=== PATIENT | female | born 1975 | race Caucasian/White ===

== ENCOUNTER 2021-04-06 05:36 | Outpatient (CLI) | payer BC, OTHER ==
[~2021-04-06] VITALS: Ht 170 cm; Wt 89.0 kg
[2021-04-06] MEDS ORDERED: L.AC1CAP6 PO (17:15)
[2021-04-06] MEDS ORDERED: LEVO112C4 PO (17:15)
[2021-04-06] MEDS ORDERED: MULT-1136 PO (17:15)
[2021-04-06] MEDS ORDERED: FOLI0.4T6 PO (17:15)
[2021-04-06] MEDS ORDERED: NF-VITD400 PO (17:15)
== END 2021-04-06 17:25 | disposition home or self-care (01) ==
LOC: PREOP 05:36
PROVIDERS: ATTEND Obstetrics & Gynecology
DX: Z01.818 Encounter for other preprocedural examination (principal)

== ENCOUNTER 2021-04-12 05:55 | Day surgery (SDC) | payer BC, OTHER ==
[~2021-04-12] VITALS: Ht 170 cm; Wt 89.0 kg
[2021-04-12] VITALS (10 sets, daily range): BP systolic 106–129; BP diastolic 55–90
[~2021-04-12 05:55] MED LIST: FOLI0.4T6 PO; L.AC1CAP6 PO; LEVO112C4 PO; MULT-1136 PO; NF-VITD400 PO
[2021-04-12] MEDS ORDERED: ceFAZolin 2 GM IV Premixed 50 ML IV ONE (06:30)
[2021-04-12 06:32] LABS: BASOPHILS % (AUTO) 0 % (0-10); EOSINOPHILS # (AUTO) 0.1 10^3/uL (0.0-0.3); EOSINOPHILS % (AUTO) 1 % (0-10); HEMATOCRIT 43 % (35-52); HEMOGLOBIN 14.3 g/dL (11.5-16.0); LYMPHOCYTES # (AUTO) 1.6 10^3/uL (1.0-4.0); LYMPHOCYTES % (AUTO) 25 % (12-44); MEAN CORPUSCULAR HEMOGLOBIN 32 pg (25-34); MEAN CORPUSCULAR HGB CONC 33 g/dL (32-36); MEAN CORPUSCULAR VOLUME 95 fL (80-99); MEAN PLATELET VOLUME 9.2 fL (9.0-12.2); MONOCYTES # (AUTO) 0.6 10^3/uL (0.0-1.0); MONOCYTES % (AUTO) 10 % (0-12); NEUTROPHILS % (AUTO) 64 % (42-75); PLATELET COUNT 307 10^3/uL (130-400); WHITE BLOOD COUNT 6.2 10^3/uL (4.3-11.0)
[2021-04-12] MEDS ORDERED: fentaNYL INJ 100 MCG/2 ML AMP ONE ×2 (06:56→07:01)
[2021-04-12] MEDS ORDERED: ONDANSETRON 4 MG/2 ML (SDV) Z0FRAN ONE ×2 (06:57→07:01)
[2021-04-12] MEDS ORDERED: ONDANSETRON 4 MG/2 ML (SDV) Z0FRAN IVP NR (07:00)
[2021-04-12] MEDS ORDERED: fentaNYL INJ 100 MCG/2 ML AMP IVP NR (07:00)
[2021-04-12] MEDS ORDERED: proPOfol 200 MG/20 ML (DIPRIVAN) VIAL IV ONE (07:01)
[2021-04-12] MEDS ORDERED: NEOSTIGMINE 3 MG/3 ML VIAL ONE (07:01)
[2021-04-12] MEDS ORDERED: GLYCOPYRROLATE 0.2 MG/ML (ROBINUL) 2 ML VIAL ONE (07:01)
[2021-04-12] MEDS ORDERED: LIDOCAINE PF 2% 5 ML (XYLOCAINE) VIAL ONE (07:01)
[2021-04-12] MEDS ORDERED: MIDAZOLAM 2 MG/2 ML (VERSED) VIAL ONE (07:02)
[2021-04-12] MEDS ORDERED: ROCURONIUM 50 MG/5 ML (ZEMURON) VIAL IV ONE (07:02)
[2021-04-12] MEDS: LACTATED RINGERS 1,000 ML IV PRN ×2 (07:03→07:17)
[2021-04-12] MEDS ORDERED: LIDOCAINE/EPI 1%-1:200,000 (XYLOCAINE) 30 ML VIAL ONE (07:06)
[2021-04-12 07:07] LABS: BILIRUBIN,URINE NEGATIVE (NEGATIVE); CLARITY,URINE SL CLOUDY; COLOR,URINE YELLOW; GLUCOSE, URINE (UA) NEGATIVE (NEGATIVE); KETONES,URINE NEGATIVE (NEGATIVE); LEUKOCYTE ESTERASE ,URINE NEGATIVE (NEGATIVE); NITRITE,URINE NEGATIVE (NEGATIVE); PH,URINE 5.5 (5-9); PROTEIN,URINE NEGATIVE (NEGATIVE)
[2021-04-12 07:24] LABS: AMORPHOUS SEDIMENT,UR LARGE AMOR URATES /LPF; BACTERIA,URINE MODERATE /HPF
--- NOTE | 2021-04-12 07:36 | Progress Note-Pre Operative ---
Pre-Operative Progress Note H&P Reviewed The H&P was reviewed, patient examined and no changes noted. Date Seen by Provider: Apr 12, 2021 Time Seen by Provider: 07:30 Date H&P Reviewed: Apr 12, 2021 Time H&P Reviewed: 07:30 Pre-Operative Diagnosis: abnormal uterine bleeding, uterine fibroids, thick endometrium, cerv YOLIE Freeman DO Apr 12, 2021 07:36
[2021-04-12] MEDS ORDERED: SUCCINYLCHOLINE INJ 100 MG/5 ML SYR/VIAL ONE (07:50)
[2021-04-12] MEDS ORDERED: SEVOFLURANE (ULTANE) 15 ML INHAL SOLN ONE (09:23)
--- NOTE | 2021-04-12 09:42 | Operative Report ---
Operative Report Date of Procedure/Surgery Apr 12, 2021 Surgeon (s) YOLIE HAN DO Diplomatic Interpreter/Translator (s): NA Post-Operative Diagnosis uterine fibroids abnormal uterine bleeding thickened endometrium left ovarian cyst (functional) omental adhesions uterovesicular adhesions, thick and extensive Procedure Performed RaTH, bilateral salpingectomy cervical dilation and curttage with frozen (benign tissue) extensive lysis of adhesion Description of Procedure Anesthesia Type: General Estimated blood loss (mL): minimal Specimen(s) collected/removed uterus, bilateral tubes and ovaries Description of the Procedure After informed consent was obtained, patient was taken into the operating room where general anesthetic was found to be adequate. She was prepped and draped in the usual sterile fashion in the dorsal lithotomy position. A Bae catheter was placed. A speculum was placed in the vagina. The cervix was visualized and the anterior lip was grasped with a sharp toothed tenaculum. The cervix was stenotic and I could not introduce a dilator. I made an incision in the os with a 15 blade and this allowed the uterus to be sounded and depth was approximately centimeters. I then gently dilated the cervix to allow the insertion of the uterine manipulator. I placed the Lisa device (8 cm) and a 3.0 cm collar was advanced over the cervix. I inserted the Lisa without difficulty, inflating the balloon and securing it around the fornix of the cervix. The collar was then secured with sutures at 12 o'clock. Attention was then turned to the patient's abdomen. The skin was injected with 0.25% Marcaine. A supraumbilical incision was made about 8 mm in length. A Veress needle was inserted and I confirmed intraabdominal placement with a drop in pressure and the saline drop test. The opening pressure was 6 mmHg. I then insufflated the abdomen to a maximum of 15 mmHg with warmed CO2 gas. I placed an additional 8 mm trocar in the left abdomen lateral to the umbilicus approximately 15 cm lateral. Upon placing the camera, i noted that there were omental adhesions inferior to the umbilicus that were obscuring the visualization of the pelvis. Due to this, I opted to placed an additional trocar in the left upper quadrant. The patient had previously had a Navdeep fundoplication, so, prior to insertion of the trocar, I visualized the upper left abdomen and there were no adhesions noted. I then made a skin incision in the left upper quadrant and placed a 12 mm trocar. i then moved the camera to this location and was able to visualize the omental adhesions. The second and third robotic port was placed about 12 cm lateral to the right and left of the umbilical placement. 0.25% Marcaine was injected prior to placement of all trocars. These were 8 mm trocars. These were placed under direct visualization of the laparoscope. When all placements were confirmed, the patient was placed in steep Trendelenburg allowing adequate visualization. I then utilized laparoscopic jm to lyse the omental adhesions from the mid lower abdominal wall. Once this was completed, the robot was brought in for docking. The docking was accomplished without difficulty. I then took over the command of the robot utilizing the synchroseal and monopolar jm. There were adhesions over the left ovary, tube and cornu so these had to be taken down to begin dissection. The right round ligament could not be easily viewed due to the adhesions. I took down these adhesions and there was good hemostasis. Once I was able to visualize the round ligaments bilaterally and grasped them and cauterized with bipolar cautery and then cut with my jm. At this point, I then did bilateral partial salpingectomy (she has had previous tubal ligation at the time of her section). I incised the mesosalpinx with the jm. The tubes were placed in the culdesac to be removed with the uterus. I then moved my dissection to the posterior leaves of the broad ligament. I dissected the posterior leaves of the broad ligament off the uterine arteries skeletonizing them bilaterally. I then took a second clamp with the synchroseal and with the jm, transected the vessels away from the lateral aspect to the cervical stroma. There were very extensive vesicouterine and parauterine adhesions from the previous sections. These took approximately 45 minutes to take down. the uterus was essentially attached to the abdominal wall at one portion. I dissected the anterior peritoneum off the lower uterine segment. I continually pushed the bladder back and I took excessively great care and I was eventually able to dissect the vesicouterine peritoneum off the lower uterine segment and the adhesions of the uterus to the pelvic sidewall bilaterally. I then dissected in a V fashion towards the midline between the uterosacral ligaments. This allowed me to skeletonize the uterine vessels bilaterally. The balloon on the LISA was insufflated. This allowed me to see the LISA circumferentially. I then performed a colpotomy anteriorly and then amputate with cervix away from the vaginal fornix. I then continued the colpotomy circumferentially. Once this was performed, the assistant manager bilingual attempted to remove the uterus through the vagina. She then left the a sponge in the vagina to maintain the pneumoperitoneum. . I then began closure of the vaginal cuff. I closed the apices of the vaginal cuff with 2-0 Vicryl V lock sutures with a colposuspension through the uterosacral ligaments. This suspended the apices of the vaginal cuff. I extended this to the midline from both sides and overlapped the V lock sutures in the midline. Excellent closure is noted and hemostasis is achieved. All the needles were removed from the patient's abdomen. Now, the robotic instruments were removed and the robot was docked back to laparoscopy. The pelvis was irrigated. There was no active bleeding noted. surgiflow was placed over the vaginal cuff and the area of dissection due to risk of bleeding. Bilateral ureters were seen the entire time during the surgery and were peristalsing. There was no excessive bleeding noted. The trocars were removed under direct visualization. The laparoscopic sites were visualized and found to be hemostatic. the left upper quadrant deep fascial incision was closed with a figure of eight stitch of 0 vicryl. The skin incisions were closed with 4-0 Monocryl in a subcuticular fashion and then with Dermabond. Op sites were placed over the incision sites. The instruments were removed from the vagina and I noted there were no abrasions. Sponge, lap, needle and instrument counts correct times two. Patient was awakened and taken to recovery in a stable condition Findings of the Procedure enlarged boggy uterus with fibroid cervix stenotic difficult to dilate cervix omental adhesions at/inferior to umbilicus uterovesicular adhesions, dense bowel adhesions to left side of uterus left ovarian cyst (< 2 cm, simple) evidence of tubal separation Allergies and Home Medications Allergies Coded Allergies: No Known Drug Allergies (Unverified , 04/06/21) Patient Home Medication List Home Medication List Reviewed: Yes Acetaminophen (Acetaminophen) 500 Mg Tablet, 1,000 MG PO Q8HR Prescribed by: YOLIE HAN on 04/12/21 0950 Folic Acid (Folic Acid) Unknown Strength Tablet, Unknown Dose PO DAILY, (Reported) Entered as Reported by: TED MCCARTHY on 04/06/211714 Last Action: Last Taken Edited Ibuprofen (Ibu) 600 Mg Tablet, 600 MG PO Q6HR Prescribed by: YOLIE HAN on 04/12/21 0950 L.acidoph & Paracasei,B.lactis (Probiotic) 1 Each Capsule, 1 EACH PO DAILY, (Reported) Entered as Reported by: TED MCCARTHY on 04/06/211714 Last Action: Last Taken Edited Levothyroxine Sodium (Levothyroxine) 112 Mcg Capsule, 112 MCG PO DAILY, (Reported) Entered as Reported by: TED MCCARTHY on 04/06/211714 Last Action: Last Taken Edited Multivitamin (Multivitamin) 1 Each Tablet, 1 EACH PO DAILY, (Reported) Entered as Reported by: TED MCCARTHY on 04/06/211714 Last Action: Last Taken Edited Ondansetron (Ondansetron Odt) 4 Mg Tab.rapdis, 4 MG PO Q6H PRN for NAUSEA/VOMITING Prescribed by: YOLIE HAN on 04/12/21 0950 Simethicone (Mi-Acid) 80 Mg Tab.chew, 80 MG PO Q4HR PRN for gas Prescribed by: YOLIE HAN on 04/12/21 0950 Vitamin D (Vitamin D3) Unknown Strength Tablet, Unknown Dose PO DAILY, (Reported) Entered as Reported by: TED MCCARTHY on 04/06/211714 Last Action: Last Taken Edited YOLIE HAN DO Apr 12, 2021 09:42
[2021-04-12] MEDS ORDERED: SIMETHICONE 80 MG (MYLICON) CHEW PO PRN (09:45)
[2021-04-12] MEDS ORDERED: CHLORASEPTIC LOZENGE MM PRN (09:45)
[2021-04-12] MEDS ORDERED: morphine INJ 4 MG/ML 1 ML (VIAL/SYRINGE) IV PRN (09:45)
[2021-04-12] MEDS ORDERED: ONDANSETRON 4 MG (ZOFRAN) ORAL DISSOLVE TAB PO PRN (09:45)
[2021-04-12] MEDS ORDERED: PROMETHAZINE INJ 25 MG/ML (PHENERGAN) AMP IVP PRN (09:45)
[2021-04-12] MEDS ORDERED: NALOXONE 0.4 MG/ML 1 ML (NARCAN) VIAL IV PRN (09:45)
--- NOTE | 2021-04-12 09:48 | Discharge Inst-Women's Service ---
Discharge Inst-Women's Serv Depart Medication/Instructions New, Converted or Re-Newed RX: Transmitted to Pharmacy Final Diagnosis uterine fibroids abnormal uterine bleeding thickened endometrium omental adhesions uterovesicular adhesions left functional ovarian cyst Problems Reviewed?: Yes Consults/Follow Up Additional Follow Up: Yes (1 week for incision check and 8 weeks for post op exam) Activity Activity: Activity as Tolerated Driving Instructions: No Driving for 1 Week NO SMOKING: NO SMOKING Nothing Inside Vagina: No Douching, No [place] (until cleared by physician ), No Tampons Diet Discharge Diet: No Restrictions Symptoms to Report to DrSole: Bleeding Excessive, Pain Increased, Fever Over 101 Degrees F, Vaginal Bleeding Increase, Cramps in Feet or Legs, Vaginal Discharge Foul For Any Problems or Questions: Contact Your Physician Skin/Wound Care Infection Signs and Symptoms: Increased Redness, Foul Odor of Wound, Increased Drainage, Skin Itchy or Has a Rash, Increased Swelling, Temperature Above 101 F Operative Area Clean and Dry: You May Remove Bandage (in 72 hours or if soiled/wet) Stitches/Sizerock/Dermabond: Dermabond Bathing Instructions: YOLIE Amaya DO Apr 12, 2021 09:48
[2021-04-12] MEDS ORDERED: OXC5T PO (09:50)
[2021-04-12] MEDS ORDERED: IBUP-844 PO (09:50)
[2021-04-12] MEDS ORDERED: ACET-93 PO (09:50)
[2021-04-12] MEDS ORDERED: ONDA4TAB11 PO (09:50)
[2021-04-12] MEDS ORDERED: SMT80CT PO (09:50)
[2021-04-12] MEDS: LACTATED RINGERS 1,000 ML IV SCH ×2 (10:05→12:01)
[2021-04-12] MEDS ORDERED: morphine INJ 10 MG/ML 1ML (SYR OR VIAL) ONE (10:13)
[2021-04-12] MEDS ORDERED: PROMETHAZINE INJ 25 MG/ML (PHENERGAN) AMP IVP ONE (10:15)
[2021-04-12] MEDS ORDERED: HYDROmorphone 2 MG/ML VIAL (DILAUDID) IV ONE (10:15)
[2021-04-12] MEDS ORDERED: ONDANSETRON 4 MG/2 ML (SDV) Z0FRAN IVP PRN (10:15)
[2021-04-12] MEDS ORDERED: morphine INJ 10 MG/ML 1ML (SYR OR VIAL) IVP ONE (10:15)
[2021-04-12] MEDS ORDERED: KETOROLAC 30 MG/ML VIAL ONE (11:53)
[2021-04-12] MEDS ORDERED: KETOROLAC 30 MG/ML VIAL IV SCH (12:00)
--- NOTE | 2021-04-12 13:12 | Anesthesia-General Post-Op ---
General Patient Condition Mental Status/LOC: Same as Preop Cardiovascular: Satisfactory Nausea/Vomiting: Absent Respiratory: Satisfactory Pain: Controlled Complications: Absent Post Op Complications Complications None Follow Up Care/Instructions Patient Instructions None needed. Anesthesia/Patient Condition Patient Condition Patient was doing well in PACU with no complaints, stable vital signs, no apparent adverse anesthesia problems. YULIET PÉREZ DO Apr 12, 2021 13:12
[2021-04-12] MEDS ORDERED: ACETAMINOPHEN 500 MG TAB (TYLENOL) PO SCH (14:00)
[2021-04-13] MEDS ORDERED: IBUPROFEN 600 MG (MOTRIN) TAB PO SCH (12:00)
== END 2021-04-12 16:00 | disposition home or self-care (01) ==
LOC: SDC 05:55 → WS 11:00 → SDC 16:00
PROVIDERS: ATTEND Obstetrics & Gynecology
DX: D25.9 Leiomyoma of uterus, unspecified (principal); N73.6 Female pelvic peritoneal adhesions (postinfective); N83.292 Other ovarian cyst, left side; K21.9 Gastro-esophageal reflux disease without esophagitis; E07.9 Disorder of thyroid, unspecified; M19.90 Unspecified osteoarthritis, unspecified site; D64.9 Anemia, unspecified; N88.2 Stricture and stenosis of cervix uteri; Z79.899 Other long term (current) drug therapy; Z79.890 Hormone replacement therapy; Z98.890 Other specified postprocedural states; Z79.1 Long term (current) use of non-steroidal anti-inflammatories (NSAID)
CPT/HCPCS: 36415; 81000; 84703; 85025; 86850; 86900; 86901; 87077; 87081; 87088

== ENCOUNTER → 2022-09-21 | Outpatient (CLI) | payer OTHER ==
[~2022-09-21] MED LIST changes: +ACET-93 PO; +IBUP-844 PO; +ONDA4TAB11 PO; +OXC5T PO; +SMT80CT PO
== END ==
LOC: CARD 12:28
PROVIDERS: ATTEND Nurse Practitioner Family
DX: R60.9 Edema, unspecified (principal); R00.1 Bradycardia, unspecified
CPT/HCPCS: 93306

== ENCOUNTER 2023-01-08 05:43 | Outpatient (CLI) | payer OTHER ==
[~2023-01-08] VITALS: Ht 170.8 cm; Wt 90.0 kg
[2023-01-08] MEDS ORDERED: MELO5CAP3 PO (08:47)
[2023-01-08] MEDS ORDERED: HYDR25TA4 PO (08:47)
[2023-01-08] MEDS ORDERED: ASPI-999 PO (08:47)
== END 2023-01-08 15:24 | disposition home or self-care (01) ==
LOC: PREOP 05:43
PROVIDERS: ATTEND Obstetrics & Gynecology
DX: Z01.818 Encounter for other preprocedural examination (principal)

== ENCOUNTER 2023-01-15 05:57 | Day surgery (SDC) | payer OTHER ==
[~2023-01-15] VITALS: Ht 170.8 cm; Wt 90.0 kg
[2023-01-15] VITALS (14 sets, daily range): BP systolic 98–118; BP diastolic 53–73
[~2023-01-15 05:57] MED LIST changes: +ASPI-999 PO; +HYDR25TA4 PO; +MELO5CAP3 PO
[2023-01-15] MEDS: LACTATED RINGERS 1,000 ML 1,000 ML IV PRN ×2 (06:35→07:48)
[2023-01-15] MEDS ORDERED: 0.9% SODIUM CHLORIDE PF INJ 20 ML VIAL ONE (06:50)
[2023-01-15] MEDS ORDERED: ESTROGENS, Conjugated VAGINAL CREAM 30 GM ONE (06:51)
[2023-01-15] MEDS ORDERED: LIDOCAINE 2% w/EPI 1:100,000 20 ML VIAL ONE (06:51)
[2023-01-15] MEDS ORDERED: MIDAZOLAM INJ 2 MG/2 ML VIAL ONE (06:58)
[2023-01-15] MEDS ORDERED: LIDOCAINE PF 2% 5 ML VIAL ONE (06:58)
[2023-01-15] MEDS ORDERED: ROCURONIUM 50 MG/5 ML VIAL IV ONE (06:58)
[2023-01-15] MEDS ORDERED: fentaNYL INJECTION 100 MCG/2 ML VIAL ONE (06:58)
[2023-01-15] MEDS ORDERED: proPOfol INJECTION 200 MG/20 ML VIAL IV ONE (06:58)
[2023-01-15] MEDS ORDERED: dexAMETHasone INJ 10 MG/ML 1 ML VIAL ONE (07:00)
[2023-01-15] MEDS ORDERED: ONDANSETRON INJECTION 4 MG/2 ML (SDV) ONE (07:00)
[2023-01-15] MEDS ORDERED: KETOROLAC INJ 30 MG/ML VIAL ONE (07:00)
--- NOTE | 2023-01-15 07:09 | Progress Note-Pre Operative ---
Pre-Operative Progress Note Date of Available H&P: Jan 15, 2023 Date H&P Reviewed: Jan 15, 2023 Time H&P Reviewed: 07:08 History & Physical: H&P Reviewed, No changes noted Pre-Operative Diagnosis: Midline cystocele Plan: Ant. repair poss. post repair JOSE JAMES DO Jan 15, 2023 07:09
[2023-01-15] MEDS: ceFAZolin INJECTION 2,000 MG in NS (IVPB) 50 ML 50 ML IV ONE ×2 (07:19→07:41)
[2023-01-15] MEDS ORDERED: ESTROGENS, Conjugated VAGINAL CREAM 30 GM VG ONE (07:46)
[2023-01-15] MEDS ORDERED: 0.9% SODIUM CHLORIDE PF INJ 20 ML VIAL IJ ONE (07:46)
[2023-01-15] MEDS ORDERED: LIDOCAINE 2% w/EPI 1:100,000 20 ML VIAL INJ ONE (07:48)
[2023-01-15] MEDS ORDERED: NEOSTIGMINE 1 MG/1ML 10 ML VIAL ONE (08:27)
[2023-01-15] MEDS ORDERED: GLYCOPYRROLATE INJ 0.2 MG/ML 2 ML VIAL ONE (08:27)
[2023-01-15] MEDS ORDERED: SEVOFLURANE (ULTANE) 15 ML INHAL SOLN ONE (08:33)
[2023-01-15] MEDS ORDERED: HYDROmorphone INJECTION 2 MG/ML VIAL IV ONE (08:45)
[2023-01-15] MEDS ORDERED: ONDANSETRON INJECTION 4 MG/2 ML (SDV) IVP PRN (08:45)
[2023-01-15] MEDS ORDERED: HYDROcodone/ACETAMINOPHEN 5 MG/325 MG TABLET PO PRN (08:45)
[2023-01-15] MEDS ORDERED: ENOXAPARIN 40 MG/0.4 ML SYRINGE SC SCH (08:45)
[2023-01-15] MEDS ORDERED: NALOXONE 0.4 MG/ML 1 ML VIAL IV PRN (08:45)
[2023-01-15] MEDS ORDERED: morphine INJ 4 MG/ML 1 ML (VIAL/SYRINGE) IV PRN (08:45)
[2023-01-15] MEDS ORDERED: METOCLOPRAMIDE INJ 10 MG/2 ML IV PRN (08:45)
[2023-01-15] MEDS ORDERED: morphine INJ 10 MG/ML 1ML (SYR OR VIAL) IVP ONE (08:45)
[2023-01-15] MEDS ORDERED: BENZOCAINE/MENTHOL (DERMOPLAST) 56 ML CAN TP PRN (08:45)
--- NOTE | 2023-01-15 08:45 | History & Physical-OB/GYN ---
History of Present Illness History of Present Illness Reason for visit/HPI This 47-year-old G3, P2 presents for an anterior and posterior colporrhaphy. Patient has a grade 2 midline cystocele and a grade 1 rectocele. We discussed risk benefits and alternatives including the risks of infection, bleeding, injury to bowel bladder ureters, nerve and limb damage, and anesthesia risks, VTE and the benefits of checking up the vagina so that she would have less pressure. Patient verbalized understanding and had all of her questions answered to her satisfaction. Date of Admission 01/15/2023 Date Seen by a Provider: Jan 15, 2023 Time Seen by a Provider: 07:00 I consulted on this patient on 01/15/23 08:45 Attending Physician Julia Cordero Aprn Admitting Physician Admitting Physician: Attending Physician: Lisa Tariq DO Consult Allergies and Home Medications Allergies Coded Allergies: No Known Drug Allergies (Unverified , 04/06/21) Patient Home Medication List Home Medication List Reviewed: Yes Aspirin (Aspirin) 81 Mg Tab.chew, 81 MG PO, (Reported) Entered as Reported by: Camila Verma on 01/08/23846 Last Action: Reviewed Folic Acid (Folic Acid) Unknown Strength Tablet, Unknown Dose PO DAILY, (Reported) Entered as Reported by: TED MCCARTHY on 04/06/211714 Last Action: Reviewed Hydrochlorothiazide (Hydrochlorothiazide) 25 Mg Tablet, 25 MG PO, (Reported) Entered as Reported by: Camila Verma on 01/08/23846 Last Action: Reviewed Levothyroxine Sodium (Levothyroxine) 112 Mcg Capsule, 112 MCG PO DAILY, (Reported) Entered as Reported by: TED MCCARTHY on 04/06/211714 Last Action: Reviewed Meloxicam, Submicronized (Meloxicam) 5 Mg Capsule, 5 MG PO, (Reported) Entered as Reported by: Camila Verma on 01/08/23846 Last Action: Reviewed Multivitamin (Multivitamin) 1 Each Tablet, 1 EACH PO DAILY, (Reported) Entered as Reported by: TED MCCARTHY on 04/06/211714 Last Action: Reviewed Vitamin D (Vitamin D3) Unknown Strength Tablet, Unknown Dose PO DAILY, (Reported) Entered as Reported by: TED MCCARTHY on 04/06/211714 Last Action: Reviewed Discontinued Medications Acetaminophen (Acetaminophen) 500 Mg Tablet, 1,000 MG PO Q8HR Discontinued Reason: No Longer Taking Prescribed by: YOLIE HAN on 04/12/21 0950 Ibuprofen (Ibu) 600 Mg Tablet, 600 MG PO Q6HR Discontinued Reason: No Longer Taking Prescribed by: YOLIE HAN on 04/12/21 0950 L.acidoph & Paracasegary,B.lactis (Probiotic) 1 Each Capsule, 1 EACH PO DAILY, (Reported) Discontinued Reason: No Longer Taking Entered as Reported by: TED MCCARTHY on 04/06/21 1715 Ondansetron (Ondansetron Odt) 4 Mg Tab.rapdis, 4 MG PO Q6H PRN for NAUSEA/VOMITING Discontinued Reason: No Longer Taking Prescribed by: YOLIE HAN on 04/12/21 0950 Oxycodone Hcl (Oxyir Tablet) 5 Mg Tab, 5 MG PO Q4HR PRN for PAIN-SEE DOSE INSTRUCTIONS Discontinued Reason: No Longer Taking Prescribed by: CLIFTON MCCANN on 04/12/21 1543 Simethicone (Mi-Acid) 80 Mg Tab.chew, 80 MG PO Q4HR PRN for gas Discontinued Reason: No Longer Taking Prescribed by: YOLIE HAN on 04/12/21 0950 Past Btrkktv-Nhxize-Pymoit Hx Patient Social History Marrital Status: Number of Children: 3 Number of living children: 2 Employed/Student: employed Smoking Status: Never a Smoker 2nd Hand Smoke Exposure: No Recent Hopitalizations: No Alcohol Use?: No Immunizations Up To Date Date of Influenza Vaccine: Dec 07, 2020 Seasonal Allergies Seasonal Allergies: Yes Surgeries Yes (RT ARM SURGERY, GALLBLADDER, C/S, D&C, Hiatal hernia repair) Section, Gallbladder, Hysterectomy, Orthopedic Respiratory No Cardiovascular No Neurological No Reproductive System Female Reproductive Disorders: Menstrual Problems DATABASE SUPPORT History: Hysterectomy Genitourinary No Gastrointestinal Yes (Hiatal Hernia Repair 2019) Gastroesophageal Reflux Musculoskeletal Yes Arthritis Endocrine History of Endocrine Disorders: Yes Endocrine Disorders: Hypothyroidsim HEENT History of HEENT Disorders: No Cancer No Psychosocial History of Psychiatric Problem: No Integumentary History of Skin or Integumenta: No Blood Transfusions History of Blood Disorders: Yes (HX OF ANEMIA) Review of Systems Constitutional: see HPI EENTM: see HPI Respiratory: see HPI Cardiovascular: see HPI Gastrointestinal: see HPI Genitourinary: see HPI Musculoskeletal: see HPI Skin: see HPI Psychiatric/Neurological: No Symptoms Reported, See HPI Physical Exam Physical Exam Vital Signs Vital Signs Date Time Temp Pulse Resp B/P (MAP) Pulse Ox O2 Delivery O2 Flow Rate FiO2 01/15/23 06:00 36.9 56 18 118/73 (88) 99 Capillary Refill : General Appearance: No Apparent Distress, WD/WN Respiratory: Chest Non Tender, Lungs Clear, Normal Breath Sounds Cardiovascular: Regular Rate, Rhythm, No Edema Abdominal: normal bowel sounds, non tender, soft Gynecology/General: No urethral discharge, No lesions Vagina: Cystocele, Prolapse, Rectocele Uterus: Absent Pelvic Exam: normal external exam Extremity: Normal Inspection Assessment/Plan Admission Diagnosis Cystocele and rectocele Plan for anterior and posterior colporrhaphy Admission Status: Observation LISA TARIQ DO Jan 15, 2023 08:45
--- NOTE | 2023-01-15 08:46 | OB/GYN Operative Report ---
Operative Report Date of Procedure:Jan 15, 2023 Preoperative Diagnosis:Grade 2 midline cystocele grade 1 rectocele Postoperative Diagnosis: Same Name of the Procedure: Anterior and posterior colporrhaphy Surgeon: Lisa James Unix System Administrator(s): Royer TRAN Anesthesia: General ETA Indications for Procedure: This 47-year-old presents with a grade 2 cystocele and grade 1 rectocele that has been causing her difficulty with urination and feelings of pressure. Patient had tried nonsurgical options they were not successful. Patient verbalized understanding of the risk benefits and alternatives, signed consents and is ready to proceed. Findings of the Procedure: Midline grade 2 cystocele and grade 1 rectocele Complications: None Disposition: Counts correct x2 patient taken to recovery room in stable condition. Description of the Procedure: Informed consent was obtained and signed and patient was taken to OR [place]. 3 placed under general tracheal anesthesia laced in the dorsolithotomy position prepped and draped usual sterile fashion. A timeout was performed. A pelvic exam under anesthesia revealed a grade 2 midline cystocele and a grade 1 rectocele. Because the patient had had issues with both she was prepared to have both repaired. Starting with the cystocele 2 Allis clamps were grasped about 2 cm and a half away from the urethral meatus and then near the cuff. The area was injected with 1% lidocaine with epinephrine. The vagina vaginal mucosa was then hydrodissected off of the bladder using 1% lidocaine with epi. Once the area was hydrodissected and midline incision was made and the vaginal mucosa full-thickness was reflected off of the bladder until we were able to dissect to just behind the pubic symphysis bilaterally. Using 0 Vicryl on a UR 6 needle, I placed a stitch deep just behind the pubic spine symphysis to the left side and then across to the right side to tighten up the area once this was done and the cystocele was pushed backward I then did pursestring stitches in a single layer to bring all together. The vaginal mucosa was then trimmed and then the vaginal mucosa was reapproximated using 3-0 Rapide in a running fashion. Next attention was paid to the perineum and the rectocele was then noted to os clamps were grasped at 5 and 7:00, injected with 1% lidocaine with epi to create a hydrodisection. and a triangle perineoplasty incision was made and then the vaginal mucosa was reflected off of the rectum to midline and midway to the vaginal cuff. The bowel was reflected off of the vaginal mucosa and pursestring sutures were placed in 2 layers to retract the rectocele. The vaginal mucosa was then trimmed and the vaginal mucosa was reapproximated using 0 Vicryl and the perineoplasty was also reapproximated. Was noted that the levator ani on the right was tight and once patient heals we will plan on physical therapy. The estimated blood loss was less than 50 cc fluids were 1700 cc urine output was 50 cc all my counts were correct and the patient was taken to recovery room in stable condition. I did have Dr. Juan TRAN assist me with this procedure for extra retraction and his additional expertise LISA JAMES DO Jan 15, 2023 08:46
[2023-01-15] MEDS ORDERED: morphine INJ 10 MG/ML 1ML (SYR OR VIAL) ONE (09:03)
--- NOTE | 2023-01-15 09:40 | Anesthesia-General Post-Op ---
General Patient Condition Mental Status/LOC: Same as Preop Cardiovascular: Satisfactory Nausea/Vomiting: Absent Respiratory: Satisfactory Pain: Controlled Complications: Absent Post Op Complications Complications None Follow Up Care/Instructions Patient Instructions None needed. Anesthesia/Patient Condition Patient Condition Patient is doing well, no complaints, stable vital signs, no apparent adverse anesthesia problems. No complications reported per nursing. NAILA THAPA CRNA Jan 15, 2023 09:40
[2023-01-15] MEDS ORDERED: D5 LR 1,000 ML IV SOLN 1,000 ML IV ONE (10:24)
[2023-01-15] MEDS ORDERED: IBUP-1780 PO (10:26)
[2023-01-15] MEDS ORDERED: DOCU100C37 PO (10:26)
[2023-01-15] MEDS ORDERED: ACHD5005 PO (10:26)
[2023-01-15] MEDS: D5 LR 1,000 ML IV SOLN 1,000 ML IV SCH ×2 (10:42→17:37)
[2023-01-15] MEDS: KETOROLAC INJ 30 MG/ML VIAL IV SCH ×2 (17:37→23:19)
[2023-01-16] MEDS: KETOROLAC INJ 30 MG/ML VIAL IV SCH (05:26)
[2023-01-16 05:30] VITALS: BP 111/60
[2023-01-16 05:39] LABS: BASOPHILS % (AUTO) 0 % (0-10); EOSINOPHILS % (AUTO) 0 % (0-10); HEMATOCRIT 35 % (35-52); LYMPHOCYTES # (AUTO) 1.8 10^3/uL (1.0-4.0); LYMPHOCYTES % (AUTO) 11 % (12-44); MEAN CORPUSCULAR HEMOGLOBIN 31 pg (25-34); MEAN CORPUSCULAR HGB CONC 35 g/dL (32-36); MEAN CORPUSCULAR VOLUME 90 fL (80-99); MONOCYTES # (AUTO) 1.3 10^3/uL (0.0-1.0); MONOCYTES % (AUTO) 8 % (0-12); NEUTROPHILS # (AUTO) 12.8 10^3/uL (1.8-7.8); NEUTROPHILS % (AUTO) 80 % (42-75); PLATELET COUNT 276 10^3/uL (130-400); WHITE BLOOD COUNT 15.9 10^3/uL (4.3-11.0)
[2023-01-16 06:07] LABS: BAND NEUTROPHILS 3 %; LYMPHOCYTES % (MANUAL) 5 %; MONOCYTES % (MANUAL) 7 %; NEUTROPHILS % (MANUAL) 82 %; REACTIVE LYMPHOCYTES 3 %
--- NOTE | 2023-01-16 08:26 | Progress Note ---
Standard Progress Note Progress Notes/Assess & Plan Date Seen by a Provider: Jan 16, 2023 Time Seen by a Provider: 08:15 Progress/Assessment & Plan Patient is postop day #1 status post anterior and posterior colporrhaphy. She is doing well has no concerns. Her pain is well controlled. She would like to go home today. Bae and vaginal packing were removed today and patient has urinated on her own x2. Vital signs stable afebrile Heart regular rate and rhythm Lungs clear to auscultation bilaterally Abdomen soft nontender nondistended Vaginal bleeding is minimal Extremities intact x4 no cyanosis clubbing erythema or edema A/P Status post anterior and posterior colporrhaphy DC to home DC instructions given JOSE JAMES DO Jan 16, 2023 08:26
--- NOTE | 2023-01-16 08:29 | Short Stay Summary ---
Discharge Summary Hospital Course Final Diagnosis: Status post anterior and posterior colporrhaphy Hospital Course Date of Admission: Admission Diagnosis : Family Physician/Provider: Maribeth Ayon Aprn Date of Discharge: 01/16/23 Discharge Diagnosis: Status post anterior and posterior colporrhaphy Hospital Course: Patient was admitted for an anterior posterior colporrhaphy. She did very well intraoperatively and postoperatively she did just as well. She had her Bae catheter and vaginal packing removed in the morning and she was able to ambulate as well as urinate on her own x2. She was discharged home with pain medications and instructions. Labs and Pending Lab Test: Laboratory Tests 01/16/23 05:03: White Blood Count 15.9H, Red Blood Count 3.84, Hemoglobin 12.0, Hematocrit 35, Mean Corpuscular Volume 90, Mean Corpuscular Hemoglobin 31, Mean Corpuscular Hemoglobin Concent 35, Red Cell Distribution Width 12.7, Platelet Count 276, Mean Platelet Volume 10.0, Immature Granulocyte % (Auto) 0, Neutrophils (%) (Auto) 80H, Lymphocytes (%) (Auto) 11L, Monocytes (%) (Auto) 8, Eosinophils (%) (Auto) 0, Basophils (%) (Auto) 0, Neutrophils # (Auto) 12.8H, Lymphocytes # (Auto) 1.8, Monocytes # (Auto) 1.3H, Eosinophils # (Auto) 0.0, Basophils # (Auto) 0.0, Immature Granulocyte # (Auto) 0.1, Neutrophils % (Manual) 82, Lymphocytes % (Manual) 5, Monocytes % (Manual) 7, Band Neutrophils 3, Reactive Lymphocytes 3 Microbiology 01/15/23 MRSA Screen - Final, Complete MRSA not isolated Home Meds Active Docusate Sodium 100 Mg Capsule 100 Mg PO BID Take 1 tablet twice a day Hydrocodone-Acetamin 5-325 mg (Hydrocodone/Acetaminophen) 5 Mg-325 Mg Tablet 1-2 Ea PO Q4H PRN Take 1 tablet every 4 hours as needed for pain Ibuprofen 800 Mg Tablet 800 Mg PO Q8H Take 1 tablet every 8 hours as needed for pain Reported Aspirin 81 Mg Tab.chew 81 Mg PO Meloxicam (Meloxicam, Submicronized) 5 Mg Capsule 5 Mg PO Hydrochlorothiazide 25 Mg Tablet 25 Mg PO Vitamin D3 (Vitamin D) Unknown Strength Tablet Unknown Dose PO DAILY Levothyroxine (Levothyroxine Sodium) 112 Mcg Capsule 112 Mcg PO DAILY Multivitamin 1 Each Tablet 1 Each PO DAILY Folic Acid Unknown Strength Tablet Unknown Dose PO DAILY Assessment/Pt Instructions Status post A&P repair Follow-up in 1 week Nothing in the vagina No lifting over 5 pound Continue taking stool softeners twice daily No driving while on pain medication Discharge Instructions Discharge Diet: Regular Diet Discharge Physical Examination Allergies: Coded Allergies: No Known Drug Allergies (Unverified , 04/06/21) Discharge Summary Date of Admission Date of Discharge JOSE JAMES DO Jan 16, 2023 08:28
[2023-01-16] MEDS ORDERED: ENOXAPARIN 40 MG/0.4 ML SYRINGE SC SCH (09:00)
[2023-01-16] MEDS ORDERED: DOCUSATE SODIUM 100 MG CAPSULE PO SCH (09:00)
[2023-01-16 09:30] VITALS: BP 102/58
[2023-01-16 10:08] VITALS: BP 111/60
--- NOTE | 2023-01-16 11:12 | Anesthesia-General Post-Op ---
General Patient Condition Mental Status/LOC: Same as Preop Cardiovascular: Satisfactory Nausea/Vomiting: Absent Respiratory: Satisfactory Pain: Controlled Complications: Absent Post Op Complications Complications None Follow Up Care/Instructions Patient Instructions None needed. Anesthesia/Patient Condition Patient Condition Patient is doing well, no complaints, stable vital signs, no apparent adverse anesthesia problems. No complications reported per nursing. SONA ANDUJAR CRNA Jan 16, 2023 11:12
[2023-01-16] MEDS ORDERED: IBUPROFEN 800 MG TABLET PO SCH (13:00)
== END 2023-01-16 10:40 | disposition home or self-care (01) ==
LOC: SDC 05:57 → WS 10:38 → SDC 01-16 10:40
PROVIDERS: ATTEND Obstetrics & Gynecology
DX: N81.11 Cystocele, midline (principal); N81.6 Rectocele; E66.9 Obesity, unspecified; Z68.30 Body mass index [BMI] 30.0-30.9, adult
CPT/HCPCS: 87081